=== PATIENT | male | born 1980 | race Caucasian/White ===

== ENCOUNTER 2024-05-21 23:28 | Emergency (ER) | payer OTHER, SELFPAY ==
[2024-05-21 23:34] VITALS: BP 156/89
[2024-05-21 23:37] VITALS: BP 156/89
[2024-05-22] VITALS: BP 159/78
[2024-05-22] MEDS: SUBLIMAZE 100 MCG IV (00:26)
[2024-05-22 01:08] LABS: % Basophils 0.6 % (0-2); % Eosinophils 0.9 % (0-6); % Immature Granulocytes 0.2 % (0-0.5); % Lymphocytes 18.4 % (20.5-51.1); % Monocytes 4.7 % (1.7-9.3); % Neutrophils 75.2 % (42.2-75.2); Absolute Basophils 0.1 10^3/uL (0-0.2); Absolute Eosinophils 0.1 10^3/uL (0-0.7); Absolute Lymphocytes 1.5 10^3/uL (1.2-3.4); Absolute Monocytes 0.4 10^3/uL (0.1-0.6); Hematocrit 34.1 % (39.0-52.0); Hemoglobin 12.3 g/dL (13.0-18.0); Mean Corp Hgb Conc. 36.1 g/dL (33.0-37.0); Mean Corpuscular Hgb 28.7 pg (27.0-31.0); Mean Corpuscular Volume 79.7 fL (80.0-94.0); Mean Platelet Volume 9.6 fL (7.4-10.4); Nucleated Red Blood Cells % 0 % (-); Platelet Count 247 10^3/uL (130-400); Red Blood Cell Count 4.28 10^6/uL (4.70-6.10); Red Cell Dist. Width 13.3 % (11.5-14.5)
[2024-05-22 01:19] LABS: ALT (SGPT) 64 U/L (0-50); AST (SGOT) 60 U/L (17-59); Albumin 4.1 g/dl (3.5-5.0); Alkaline Phosphatase 117 U/L (38-126); Blood Urea Nitrogen 17 mg/dl (9-20); Calcium 9.2 mg/dl (8.4-10.2); Carbon Dioxide 27 mmol/L (22-30); Chloride 103 mmol/L (98-107); Glucose 95 mg/dl (70-99); Potassium 4.4 mmol/L (3.5-5.1); Sodium 137 mmol/L (135-145); Total Bilirubin 0.8 mg/dl (0.2-1.3); Total Protein 6.9 g/dl (6.3-8.2); eGFR > 60.00
[2024-05-22] MEDS: SUBLIMAZE 50 MCG IV (01:35)
--- NOTE | 2024-05-22 03:01 | ED.GENMED ---
History of Present Illness
General
Chief Complaint: Fall
Time Seen by Provider: 05/22/24 00:08
History of Present Illness
History of Present Illness:
44-year-old male presents from [facility] for evaluation of left leg and hip pain. He had a mechanical fall and landed on the left hip. 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 The surgeries were done at [facility]. He is reportedly on crutches and partial weightbearing status on the hip as a result of the spacer
Review of Systems
Review of Systems
Allergies reviewed?: Yes
All Other Systems: ROS reviewed and negative except as documented in HPI and ROS
Phy Exam
Physical Exam
Physical Exam:
GEN: Well appearing, NAD, WDWN
HEENT: Oral mucosa moist, no scleral icterus
Cardiac: Regular rate
Lung: No respiratory distress, no tachypnea
MSK: No gross deformity or injuries. No evidence for external trauma. Shortening of the left lower extremity noted, no rotation, passive range of motion appears normal
Skin: Good color, no pallor or jaundice, no rashes
Neuro: AO x3, moves all extremities freely
Psych: Calm, cooperative
Course
Orders/Labs/Results
Orders:
Orders
05/22/24 00:22
Fentanyl Citrate/Pf [Sublimaze] 100 mcg IV NOW STA
CR Hip - LT w/wo Pel 2-3 Vw* Urgent
Comment:
Reason For Exam: fall
Include a pelvis x-ray?: Yes
05/22/24 00:23
Complete Blood Count/With Diff Urgent
Comprehensive Metabolic Panel Urgent
05/22/24 01:14
CT Pelvis W/o Iv Contrast Urgent
Comment:
Reason For Exam: fall, L hip injury, hip spacer in place
05/22/24 01:15
Fentanyl Citrate/Pf [Sublimaze] 50 mcg IV NOW STA
Abnormal Lab Results
05/22/24
00:23
RBC 4.28 L 10^6/uL
(4.70-6.10)
Hgb 12.3 L g/dL
(13.0-18.0)
Hct 34.1 L %
(39.0-52.0)
MCV 79.7 L fL
(80.0-94.0)
Lymphocytes % 18.4 L %
(20.5-51.1)
Creatinine 0.6 L mg/dL
(0.7-1.3)
AST 60 H U/L
(17-59)
ALT 64 H U/L
(0-50)
05/22/24 00:23
05/22/24 00:23
Vital Signs
Initial and Last Documented VS:
Initial Vital Signs
BP
156/89
05/21/24 23:34
Last Documented Vital Signs
Pulse Resp BP Pulse Ox
74 18 159/78 98
05/21/24 23:37 05/21/24 23:37 05/22/24 00:00 05/22/24 00:30
MDM/Problems Addressed
MDM/Problems Addressed:
Imaging both x-ray and CT showed no evidence for hardware disruption, there is a joint effusion this is likely on the basis of his prior infection however hematoma is a possibility as well. Patient's range of motion is essentially normal after pain
medication. [facility] him back to [facility] and advised close outpatient follow-up with orthopedics
*Critical Care Note
Total Time (30-74mins, 75-104mins- exclusive of procedures): Not Applicable
ED Attending Note
-
Portions of this chart may have been created with voice recognition software.� Occasional wrong word or��sound alike� substitutions may have occurred due to the inherent limitations of voice recognition software.
Discharge Plan
Departure
Patient Disposition: Home (Routine Discharge)
Date of Disposition: 05/22/24
Time of Disposition: 03:01
Patient with high blood pressure during this ER visit?: No
Discharge Problem:
Sprain of left hip
Prescriptions:
No Action
amoxicillin 500 mg Capsule
500 mg PO TID
methadone 10 mg Tablet
10 mg PO DAILY
nortriptyline 25 mg Capsule
25 mg PO DAILY
Rx Instructions:
at night
Referrals:
[facility] [Family Provider] -
Activity Restrictions/Additional Instructions:
Continue with partial weight bearing status on crutches
Follow up with your Orthopedist at [facility] as soon as possible
Interventions
Interventions:
*Risk Screen - Suicide Last Done: 05/21/24 23:42
ED-Musculoskeletal Assessment Last Done: 05/22/24 00:37
ED- Neurological Assessment Last Done: 05/21/24 23:38
ED-Skin Assessment Last Done: 05/22/24 00:37
Discharge Date and Time
Print Language: ANDORRAN
== END 2024-05-22 03:20 | disposition home or self-care (01) ==
LOC: EMR 23:28
PROVIDERS: Physician Assistant; EMERGENCY PHYSICIAN Emergency Medicine
DX: S73.102A Unspecified sprain of left hip, initial encounter (principal); M25.452 Effusion, left hip; W19.XXXA Unspecified fall, initial encounter; Z96.642 Presence of left artificial hip joint
CPT/HCPCS: 99284; 96374; 96376; 72192; 73502; 80053; 85025